=== PATIENT | female | born 1995 | race Caucasian/White ===

== ENCOUNTER → 2025-02-05 | Outpatient (CLI) | payer BC | END | disposition home or self-care (01) | LOC: US 10:31 | DX: N60.02 Solitary cyst of left breast (principal); N63.23 Unspecified lump in the left breast, lower outer quadrant | CPT/HCPCS: 76641 ==

== ENCOUNTER → 2025-03-13 | Outpatient (CLI) | payer BC | END | disposition home or self-care (01) | LOC: MAMMO 10:15 | DX: N63.20 Unspecified lump in the left breast, unspecified quadrant (principal); N63.10 Unspecified lump in the right breast, unspecified quadrant; R92.333 Mammographic heterogeneous density, bilateral breasts | CPT/HCPCS: 77062; 77066; G0279 ==